=== PATIENT | male | born 1990 | race Caucasian/White ===

== ENCOUNTER 2017-10-08 14:16 | Emergency (ER) | payer OTHER ==
[~2017-10-08] VITALS: Ht 177.8 cm; Wt 125.0 kg
[~2017-10-08 14:16] MED LIST: Z.0.NO CURRENT MEDS
[2017-10-08] MEDS ORDERED: ONDANSETRON HCL 4 MG/2 ML VIAL ONE (14:26)
[2017-10-08] MEDS ORDERED: TETANUS/DIPHTHERIA TOXOID ADULT 0.5 ML VIAL IM ONE (14:30)
[2017-10-08] MEDS ORDERED: ONDANSETRON HCL 4 MG/2 ML VIAL IV PUSH ONE ×2 (14:30→15:00)
[2017-10-08] MEDS ORDERED: LIDOCAINE 1%/EPINEPHrine 1:100,000 SOLN 20 ML VIAL INFIL ONE (14:30)
[2017-10-08 14:35] VITALS: BP 120/68; PULSE 55; RESP 18; TEMP 98.1; O2SAT 95
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
[2017-10-08] MEDS ORDERED: METOCLOPRAMIDE HCL 10 MG/2 ML VIAL IV PUSH ONE (15:00)
[2017-10-08 15:06] LABS: AUTOMATED NEUTROPHIL # 7.4 TH/MM3 (1.8-7.7); BASOPHIL # 0.1 TH/MM3 (0-0.2); BASOPHIL % 0.6 % (0.0-2.0); EOSINOPHIL # 0.1 TH/MM3 (0-0.4); HEMATOCRIT 43.1 % (39.0-51.0); HEMOGLOBIN 14.7 GM/DL (13.0-17.0); LYMPH % 30.5 % (9.0-44.0); LYMPHOCYTE # 3.7 TH/MM3 (1.0-4.8); MEAN CORPUSCULAR HEMOGLOBIN 26.7 PG (27.0-34.0); MEAN CORPUSCULAR HGB CONC 34.2 % (32.0-36.0); MEAN PLATELET VOLUME 7.1 FL (7.0-11.0); MONO % 6.8 % (0.0-8.0); MONOCYTE # 0.8 TH/MM3 (0-0.9); NEUT % 61.1 % (16.0-70.0); PLATELET COUNT 356 TH/MM3 (150-450); RED BLOOD COUNT 5.52 MIL/MM3 (4.50-5.90); RED CELL DISTRIBUTION WIDTH 14.8 % (11.6-17.2); WHITE BLOOD COUNT 12.2 TH/MM3 (4.0-11.0)
[2017-10-08] MEDS ORDERED: IOHEXOL 350 MG/ML 10 ML VIAL (for RAD DIAG) IVCONTRAST ONE (15:15)
[2017-10-08 15:28] LABS: BICARBONATE 23.2 MEQ/L (21.0-32.0); CALCIUM 9.1 MG/DL (8.5-10.1); CREATININE 1.14 MG/DL (0.60-1.30)
[2017-10-08 15:32] LABS: INTERNATIONAL NORMALIZED RATIO 1.1 RATIO; PROTHROMBIN TIME - PATIENT 10.7 SEC (9.8-11.6)
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
[2017-10-08] MEDS ORDERED: LIDOCAINE 1%/EPINEPHrine 1:100,000 SOLN 30 ML VIAL INFIL ONE (15:45)
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
[2017-10-08] MEDS ORDERED: HYDR-4107 PO (16:37)
[2017-10-08] MEDS ORDERED: IBUP1TAB7 PO (16:37)
[2017-10-08] MEDS ORDERED: ZOFR4TAB PO (16:37)
== END 2017-10-08 17:28 | disposition home or self-care (01) ==
LOC: NEPE 14:16
DX: S01.81XA Laceration without foreign body of other part of head, initial encounter (principal); R11.2 Nausea with vomiting, unspecified; S39.012A Strain of muscle, fascia and tendon of lower back, initial encounter; S16.1XXA Strain of muscle, fascia and tendon at neck level, initial encounter; T14.8XXA Other injury of unspecified body region, initial encounter; M79.632 Pain in left forearm; R51 Headache; V13.4XXA Pedal cycle driver injured in collision with car, pick-up truck or van in traffic accident, initial encounter; Y93.55 Activity, bike riding; Y92.9 Unspecified place or not applicable; F12.90 Cannabis use, unspecified, uncomplicated; Z88.0 Allergy status to penicillin; Z23 Encounter for immunization
CPT/HCPCS: 12013; 70450; 70486; 71045; 71260; 72125; 72128; 72131; 72170; 73090; 74177; 80048; 85025; 85610; 85730; 90471; 90714; 96374; 96375; 99285; J2405; J2765; Q9967

== ENCOUNTER 2017-10-20 14:05 | Emergency (ER) | payer SELFPAY ==
[~2017-10-20] VITALS: Ht 177.8 cm; Wt 118.0 kg
[~2017-10-20 14:05] MED LIST changes: +HYDR-4107 PO; +IBUP1TAB7 PO; +ZOFR4TAB PO
[2017-10-20 14:09] VITALS: BP 153/69; PULSE 62; RESP 16; TEMP 98; O2SAT 99
[2017-10-20] MEDS ORDERED: MUPI2OIN TOPICAL (14:21)
[2017-10-20] MEDS ORDERED: BACT800T5 PO (14:21)
--- NOTE | 2017-10-20 14:24 | PD ---
HPI Chief Complaint: Wound/Suture/Staple Re-Check Time Seen by Provider: 14:15 Travel History International Travel<30 days: No Contact w/Intl Traveler<30days: No Traveled to known affect area: No History of Present Illness HPI 27-year-old male that presents to the ED for evaluation of suture removal. Patient was seen here about 2 weeks ago for an injury to his head. Patient suffered a laceration that was repaired here. Per patient he has had no issues with the sutures. He states compliance with his wound care. Denies any other medical issues. No fevers chills or sweats. Pain is minimal. No other medical issues. PFSH Past Medical History Blood Disorders: No Cancer: No Cardiovascular Problems: No Diabetes: No Diminished Hearing: No Gastrointestinal Disorders: No Glaucoma: No Genitourinary: No Hepatitis: No Hiatal Hernia: No Hypertension: No Immune Disorder: No Musculoskeletal: No Neurologic: No Psychiatric: Yes (adhd, bi-polar) Reproductive: No Respiratory: No Immunizations Current: Yes Migraines: Yes Seizures: No Thyroid Disease: No Ulcer: No Past Surgical History Pacemaker: No Tonsillectomy: Yes Other Surgery: Yes (SKIN GRAFTS R CALF) Social History Alcohol Use: No Tobacco Use: No Substance Use: No Allergies-Medications (Allergen,Severity, Reaction): Coded Allergies: penicillin G (Unverified Allergy, Severe, 10/20/17) RASH Reported Meds & Prescriptions Reported Meds & Active Scripts Active Mupirocin Topical (Mupirocin) 2 % Oint 1 Applic TOPICAL BID Bactrim DS (Sulfamethoxazole-Trimethoprim) 800-160 Mg Tab 1 Tab PO BID 7 Days Ibuprofen 800 Mg Tab 800 Mg PO Q6HR PRN Zofran (Ondansetron HCl) 4 Mg Tab 4 Mg PO Q6HR PRN Hydrocodone-Acetaminophen 5-300 Mg Tab 1 Tab PO Q6H PRN Reported No Current Meds (Miscellaneous Medication) Misc Review of Systems Except as stated in HPI: all other systems reviewed are Neg Physical Exam Narrative GENERAL: SKIN: Warm and dry. Patient has a healing laceration on the left face. Sutures noted. Some yellow crusting noted but not on the laceration itself is more on the left upper temporal area. Could be impetigo. No obvious sign of erythema however. No tender to touch. No purulence noted. HEAD: Atraumatic. Normocephalic. EYES: Pupils equal and round. No scleral icterus. No injection or drainage. ENT: No nasal bleeding or discharge. Mucous membranes pink and moist. NECK: Trachea midline. No JVD. CARDIOVASCULAR: Regular rate and rhythm. RESPIRATORY: No accessory muscle use. Clear to auscultation. Breath sounds equal bilaterally. GASTROINTESTINAL: Abdomen soft, non-tender, nondistended. Hepatic and splenic margins not palpable. MUSCULOSKELETAL: Extremities without clubbing, cyanosis, or edema. No obvious deformities. NEUROLOGICAL: Awake and alert. No obvious cranial nerve deficits. Motor grossly within normal limits. Five out of 5 muscle strength in the arms and legs. Normal speech. PSYCHIATRIC: Appropriate mood and affect; insight and judgment normal. Data Data Last Documented VS Vital Signs Date Time Temp Pulse Resp B/P (MAP) Pulse Ox O2 Delivery O2 Flow Rate FiO2 10/20/17 14:09 98.0 62 16 153/69 (97) 99 Orders Orders Remove Sutures (10/20/17 14:19) Ed Discharge Order (10/20/17 14:19) MDM Medical Decision Making Medical Screen Exam Complete: Yes Emergency Medical Condition: Yes Medical Record Reviewed: Yes Differential Diagnosis Suture removal versus laceration versus impetigo Narrative Course 27-year-old male that presents to the ED for evaluation of suture removal. Patient was properly examined and was found to have signs and symptoms consistent appears to be suture removal. Possible impetigo that appears to be less likely. Likely this is having. I will try antibiotics for now to cover for infectious patient did suffer a significant laceration to his head. Patient was given mupirocin cream as well. Sutures were removed by ED nurse. Patient was told to do wound care. Follow with PCP. See ED worsening symptoms. Diagnosis Primary Impression: Visit for suture removal Patient Instructions: General Instructions Additional Instructions: Take medications as prescribed. Follow-up with PCP. See ED worsening symptoms.Wound care daily with soap and water. You can apply bandaid if needed. Neosporyn or OTC antibiotic ointment to area as needed twice a day for at least 2 weeks to help with scarring and prevent infection. Meoderma OTC for scarring if needed. Avoid sun exposure for 2 months as the sun could make scar darker and more noticeable. See ED if worst. Med/Other Pt SpecificInfo: Prescription(s) given Scripts Mupirocin Topical (Mupirocin Topical) 2 % Oint 1 APPLIC TOPICAL BID for Mgmt Bacterial Infection, #1 TUBE 0 Refills Prov: Jin Godinez MD 10/20/17 Sulfamethoxazole-Trimethoprim (Bactrim DS) 800-160 Mg Tab 1 TAB PO BID for Infection for 7 Days, #14 TAB 0 Refills Prov: Jin Godinez MD 10/20/17 Disposition: 01 DISCHARGE HOME Condition: Stable Hector Chaney Oct 20, 2017 14:24
== END 2017-10-20 14:33 | disposition home or self-care (01) ==
LOC: PHEFT 14:05
DX: Z48.02 Encounter for removal of sutures (principal); L01.09 Other impetigo
CPT/HCPCS: 99281